=== PATIENT | male | born 1970 | race Caucasian/White ===

== ENCOUNTER 2017-09-13 16:45 | Emergency (ER) | payer OTHER ==
[~2017-09-13] VITALS: Ht 190.5 cm; Wt 103.0 kg
[~2017-09-13 16:45] MED LIST: BUPR300T2 PO; CLON1TAB3 PO; ESCI1TAB10 PO; GABA800T PO; LEVO125T72 PO; TRAZ100T29 PO
--- NOTE | 2017-09-13 16:52 | EMERGENCY ROOM VISIT NOTE ---
History Report prepared by Isabelle: Ashia Landeros Under the Supervision of: Dr. Christ Harrison D.O. First contact with patient: 16:48 Stated Complaint: R HIP DISLOCATE/ NO TRAUMA History of Present Illness The patient is a 46 year old male who presents to the Emergency Room with complaints of a sudden right hip dislocation happening a half hour prior to arrival. He denies any trauma to the area and rates his pain at a 3/10. The patient reports that he drank about a quarter of a fifth today. The patient reports that a month and a half ago his hip dislocated while he was sitting on a bus but he states that it came back in on its own. Source of History: patient Onset: a half hour prior to arrival Position: other (right hip ) Symptom Intensity: rated at a 3/10 Quality: other (dislocation ) Timing: other (sudden ) Review of Systems See HPI for pertinent positives & negatives. A total of 10 systems reviewed and were otherwise negative. Past Medical & Surgical Medical Problems: (1) Avascular necrosis (2) Benign hypertension (3) Dislocation, hip (4) Total replacement of hip Family History Patient reports no known family medical history. Social History Smoking Status: Current Every Day Smoker Alcohol Use: heavy Marital Status: single Housing Status: lives alone Occupation Status: disabled Current/Historical Medications Scheduled Buspirone Hcl (Buspirone Hcl), 30 MG PO Q12 Escitalopram Oxalate (Lexapro), 20 MG PO DAILY Escitalopram Oxalate (Escitalopram Oxalate), 10 MG PO DAILY Gabapentin (Neurontin), 800 MG PO TID Levothyroxine Sodium (Synthroid), 125 MCG PO DAILY Meloxicam (Mobic), 15 MG PO DAILY Prazosin HCl (Prazosin HCl), 1 MG PO HS Trazodone Hcl (Desyrel), 150 MG PO HS Allergies Coded Allergies: No Known Allergies (Verified , 11/09/14) Physical Exam Vital Signs Date Time Temp Pulse Resp B/P (MAP) Pulse Ox O2 Delivery O2 Flow Rate FiO2 09/14/17 12:12 81 18 174/87 95 09/14/17 11:09 85 18 180/90 95 Room Air 09/14/17 09:00 96 20 157/98 96 Room Air 09/14/17 08:48 90 09/14/17 06:01 136/90 94 Room Air 09/14/17 05:46 74 09/14/17 05:30 92 14 09/14/17 05:25 92 14 94 Room Air 09/14/17 05:01 145/92 09/14/17 04:25 96 15 95 Room Air 09/14/17 04:20 91 13 95 Room Air 09/14/17 04:01 149/88 09/14/17 03:20 83 14 94 Room Air 09/14/17 03:02 80 16 146/90 95 Room Air 09/14/17 03:02 146/90 09/14/17 02:20 81 0 95 09/14/17 02:19 75 09/14/17 02:15 76 15 96 Room Air 09/14/17 02:01 123/68 09/14/17 01:15 76 14 09/14/17 01:10 78 13 93 Room Air 09/14/17 01:01 110/65 09/14/17 00:28 110/68 09/14/17 00:10 77 14 92 Room Air 09/14/17 00:05 80 13 94 Room Air 09/13/17 23:32 80 16 129/77 95 Room Air 09/13/17 23:31 129/77 09/13/17 23:05 82 13 93 09/13/17 23:00 79 14 94 09/13/17 22:31 87 09/13/17 22:30 87 14 93 09/13/17 22:00 74 16 97 09/13/17 21:30 74 18 122/69 98 Nasal Cannula 4.0 09/13/17 21:30 81 19 122/69 97 09/13/17 20:03 82 18 133/85 97 Room Air 09/13/17 18:21 98 20 149/96 97 Nasal Cannula 09/13/17 17:57 96 09/13/17 17:44 93 Nasal Cannula 2.0 09/13/17 17:44 92 Nasal Cannula 2.0 09/13/17 16:56 36.9 96 20 143/103 96 Room Air Physical Exam GENERAL: Patient is awake, alert, and in no acute distress. Patient is very anxious appearing. Alcohol noted on breath. EYES: The conjunctivae are clear. The pupils are round and reactive. EARS, NOSE, MOUTH AND THROAT: The nose is without any evidence of any deformity. Mucous membranes are moist tongue is midline NECK: The neck is nontender and supple. RESPIRATORY: Normal respiratory effort is noted there is no evidence of wheezing rhonchi or rales CARDIOVASCULAR: Tachycardic rate and regular rhythm noted there no definite murmurs rubs or gallops normal S1 normal S2 GASTROINTESTINAL: The abdomen is soft. Bowel sounds are present in all quadrants. Abdomen is nontender MUSCULOSKELETAL/EXTREMITIES: Right hip is held in slight flexion and mild internal rotation. Patient resists any range of motion testing with the right hip. SKIN: There is no obvious evidence of any rash. There are no petechiae, pallor or cyanosis noted. NEUROLOGIC: Patient is awake alert and oriented x3 Medical Decision & Procedures ER Provider Diagnostic Interpretation: Radiology results as stated below per my review and radiologist interpretation: R PELVIS/UNILATERAL HIP 1 VIEW CLINICAL HISTORY: 46 years-old Male presenting with right hip pain. TECHNIQUE: Single frontal view of the pelvis and crosstable lateral view of the right hip were obtained. COMPARISON: 11/08/2014. FINDINGS: Posterior dislocation of the right femoral head prosthetic component of the right total hip prosthesis. No gross evidence of a periprosthetic fracture. Postsurgical changes of total left hip arthroplasty also noted. Prominent heterotopic ossification along the inferior aspect of the left hip joint. The bony pelvis is intact. Speckled hyperdensity in the region of the right hip is unchanged since prior exam. IMPRESSION: Posterior dislocation of the right femoral head prosthetic component of the right total hip prosthesis. The report will be called/faxed according to standard departmental protocol. Electronically signed by: Shane Thomson M.D. 09/13/2017 5:41 PM Dictated Date/Time: 09/13/2017 5:39 PM CHEST ONE VIEW PORTABLE CLINICAL HISTORY: 46 years-old Male presenting with CHEST PAIN. TECHNIQUE: Portable semiupright AP view of the chest was obtained. COMPARISON: 01/01/2015. FINDINGS: Cardiomediastinal silhouette normal. Lungs and pleural spaces clear. Postsurgical changes of distal left clavicle resection suspected. Posttraumatic deformity of the mid diaphysis of the right clavicle. Upper abdomen normal. IMPRESSION: 1. No acute cardiopulmonary disease. Electronically signed by: Shane Thomson M.D. 09/13/2017 5:42 PM Dictated Date/Time: 09/13/2017 5:41 PM R HIP UNILATERAL 2 VIEWS CLINICAL HISTORY: 46 years-old Male presenting with post reduction. TECHNIQUE: Frontal and crosstable lateral views of the right hip were obtained. COMPARISON: Pelvic radiograph from earlier the same day. FINDINGS: There has been interval reduction of the right femoral prosthesis dislocation. The right total hip arthroplasty is now appropriately aligned. No residual subluxation. No periprosthetic fracture is evident. Punctate hyperdensities scattered throughout the right hip region are unchanged. Small heterotopic ossification noted along the superior aspect of the hip joint. IMPRESSION: Successful reduction of the right femoral prosthesis component dislocation. No hardware complication. Electronically signed by: Shane Thomson M.D. 09/13/2017 8:48 PM Dictated Date/Time: 09/13/2017 8:47 PM Laboratory Results 09/13/17 17:06 Red Blood Count 4.74, Mean Corpuscular Volume 89.7, Mean Corpuscular Hemoglobin 32.5, Mean Corpuscular Hemoglobin Concent 36.2, Mean Platelet Volume 9.3, Neutrophils (%) (Auto) 54.8, Lymphocytes (%) (Auto) 34.4, Monocytes (%) (Auto) 9.2, Eosinophils (%) (Auto) 1.0, Basophils (%) (Auto) 0.3, Neutrophils # (Auto) 3.94, Lymphocytes # (Auto) 2.47, Monocytes # (Auto) 0.66, Eosinophils # (Auto) 0.07, Basophils # (Auto) 0.02 09/13/17 17:06 Test 09/13/17 17:06 White Blood Count 7.18 K/uL (4.8-10.8) Red Blood Count 4.74 M/uL (4.7-6.1) Hemoglobin 15.4 g/dL (14.0-18.0) Hematocrit 42.5 % (42-52) Mean Corpuscular Volume 89.7 fL (80-100) Mean Corpuscular Hemoglobin 32.5 pg (25-34) Mean Corpuscular Hemoglobin Concent 36.2 g/dl (32-36) Platelet Count 203 K/uL (130-400) Mean Platelet Volume 9.3 fL (7.4-10.4) Neutrophils (%) (Auto) 54.8 % Lymphocytes (%) (Auto) 34.4 % Monocytes (%) (Auto) 9.2 % Eosinophils (%) (Auto) 1.0 % Basophils (%) (Auto) 0.3 % Neutrophils # (Auto) 3.94 K/uL (1.4-6.5) Lymphocytes # (Auto) 2.47 K/uL (1.2-3.4) Monocytes # (Auto) 0.66 K/uL (0.11-0.59) Eosinophils # (Auto) 0.07 K/uL (0-0.5) Basophils # (Auto) 0.02 K/uL (0-0.2) RDW Standard Deviation 45.4 fL (36.4-46.3) RDW Coefficient of Variation 13.7 % (11.5-14.5) Immature Granulocyte % (Auto) 0.3 % Immature Granulocyte # (Auto) 0.02 K/uL (0.00-0.02) Prothrombin Time 10.2 SECONDS (9.0-12.0) Prothromb Time International Ratio 1.0 (0.9-1.1) Activated Partial Thromboplast Time 23.1 SECONDS (21.0-31.0) Partial Thromboplastin Ratio 0.9 Anion Gap 9.0 mmol/L (3-11) Est Creatinine Clear Calc Drug Dose 122.3 ml/min Estimated GFR () 107.9 Estimated GFR (Non- 93.1 BUN/Creatinine Ratio 13.7 (10-20) Calcium Level 9.2 mg/dl (8.5-10.1) Total Bilirubin 0.6 mg/dl (0.2-1) Direct Bilirubin 0.2 mg/dl (0-0.2) Aspartate Amino Transf (AST/SGOT) 29 U/L (15-37) Alanine Aminotransferase (ALT/SGPT) 28 U/L (12-78) Alkaline Phosphatase 55 U/L (45-117) Total Protein 8.3 gm/dl (6.4-8.2) Albumin 4.6 gm/dl (3.4-5.0) Lipase 110 U/L (73-393) Ethyl Alcohol mg/dL 250.9 mg/dl (0-3) Laboratory results per my review. Medications Administered Medications (Trade) Dose Ordered Sig/Nick Route Start Time Stop Time Status Last Admin Dose Admin Sodium Chloride 1,000 ml @ 250 mls/hr Q4H STAT IV 09/13/17 16:53 09/13/17 20:52 DC 09/13/17 17:39 250 MLS/HR Fentanyl Citrate (Fentanyl Inj) 100 mcg Q15M PRN IV 09/13/17 17:00 09/14/17 12:53 DC 09/13/17 19:55 200 MCG Ondansetron HCl (Zofran Inj) 4 mg NOW STAT IV 09/13/17 16:53 09/13/17 16:56 DC 09/13/17 17:39 4 MG Bupivacaine HCl (Sensorcaine 0.75% Inj) 30 ml ONE STAT INFIL 09/13/17 16:53 09/13/17 16:56 DC 09/13/17 17:40 30 ML Fentanyl Citrate (Fentanyl Inj) 50 mcg Q15M PRN IV 09/13/17 18:00 09/14/17 12:53 DC 09/13/17 17:39 50 MCG Midazolam HCl (Versed Inj) 2 mg STK-MED ONCE .ROUTE 09/13/17 19:24 09/13/17 19:25 DC 09/13/17 19:27 1 MG Midazolam HCl (Versed Inj) 10 mg STK-MED ONCE .ROUTE 09/13/17 19:37 09/13/17 19:38 DC 09/13/17 19:55 10 MG Ketorolac Tromethamine (Toradol Inj) 30 mg NOW STAT IV 09/14/17 02:28 09/14/17 02:30 DC 09/14/17 02:59 30 MG Famotidine (Pepcid 20mg Iv Push) 20 mg ONE STAT IV 09/14/17 02:28 09/14/17 02:30 DC 09/14/17 02:59 20 MG Diazepam (Valium Tab) 5 mg NOW STAT PO 09/14/17 03:50 09/14/17 03:51 DC 09/14/17 03:55 5 MG Lorazepam (Ativan Tab) 1 mg NOW STAT SL 09/14/17 10:36 09/14/17 10:38 DC 09/14/17 11:09 1 MG Procedure Location: Right femoral nerve Verbal consent was obtained after the risks and benefits were explained, including but not limited to bleeding, scarring, infection, pain, and bone/joint /nerve damage. At this time, the risks of the procedure are less than the risks of NOT performing the procedure. A time out was taken and the correct patient and site identified. The skin was prepped with betadine and a sterile field set. The right femoral nerve was anesthetized with 20 ml of 0.75% Marcaine with epinephrine. No complications and the patient tolerated the procedure well. Procedure note. Right closed hip reduction. Right posterior hip dislocation-atraumatic The patient was treated with pain medication and Versed. The patient was able to relax somewhat. The right hip was brought into full flexion. Traction was made towards the ceiling. Some external rotation and internal rotation was done. The right hip was felt to reduce back into the acetabular component of the hip replacement. Patient tolerated procedure well. The patient was given medications for pain and for some anxiolysis. Unfortunately because of his n.p.o. status he was unable to receive for procedural sedation. The patient was reevaluated multiple times. Post reduction x-ray revealed good reduction of the right hip prosthesis. ED Course 1648: The patient was evaluated in room A9. A complete history and physical examination were performed. 1653: Ordered Bupivacaine HCl 30 ml INFIL, Zofran Inj 4 mg IV, Sodium Chloride 1 ,000 ml @ 250 mls/hr IV. 1700: Ordered Fentanyl Inj 100 mcg IV. 1800: Ordered Fentanyl Citrate 50 mcg IV. 1807: I put a hip block in the patient. 1848: Ordered Versed Inj 1 mg IV. 1924: Ordered Versed Inj 2 mg IV 1930: I checked on the patient. 193: Ordered Versed Inj 10 mg IV. 2000: I reevaluated the patient. 2100: I checked on the patient and he was asleep. 2317: The patient is still waking up. 0030: The patient was signed out to Dr. Doherty at the change of shift. Medical Decision Differential diagnosis: Etiologies such as fracture, dislocation, neurovascular compromise, compartment syndrome, soft tissue injury, as well as others were entertained. Nursing notes reviewed. Additional history is obtained from the prehospital personnel. The patient is a 46-year-old male who I am familiar with who presents to the emergency department with a dislocation of his right hip. I taken care of this gentleman in the past. 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 The patient also has a serious alcohol problem and presents to the emergency department with alcohol intoxication. He was not a candidate for closed reduction using procedural sedation. He was treated with IV fluids and IV pain medicine. He was reevaluated multiple times. I felt he could be a candidate for reduction using pain medication and Versed. The patient was given both fentanyl and Versed. He was not completely sedated but was able to relax his right leg. He was also treated with a right femoral nerve block. I was able to successfully reduce the patient's right hip but because of his alcohol intoxication and the medications he was given he was not felt to be a good candidate for an ambulatory trial at this time. He was reevaluated multiple times. He was awake alert. He was able to drink but he still had resultant numbness in his right hip. For this reason I discussed his case with the evening physician. He was signed out to the night physician with instructions to follow-up with his orthopedic physician as soon as possible. He was to be reevaluated multiple times until he was able to ambulate and had no further numbness in his right hip and was no longer clinically intoxicated. Please see Dr. Doherty's note for continuation of care and final disposition. Medication Reconcilliation Current Medication List: was personally reviewed by me Blood Pressure Screening Patient's blood pressure: Normal blood pressure Impression Primary Impression: Posterior dislocation of right hip Additional Impression: Alcohol intoxication Scribe Attestation The scribe's documentation has been prepared under my direction and personally reviewed by me in its entirety. I confirm that the note above accurately reflects all work, treatment, procedures, and medical decision making performed by me. Departure Information Dispostion Still a Patient Referrals No Doctor, Assigned (PCP) Lambert QuirogaD.O. Forms HOME CARE DOCUMENTATION FORM, IMPORTANT VISIT INFORMATION, WORK / SCHOOL INSTRUCTIONS Patient Instructions ED Alcohol Intoxication, ED Dislocation Hip Traumatic Redu, My [facility] Additional Instructions Continue all medications as prescribed. Rest and avoid any strenuous activity. Avoid any further alcoholic beverages. Do not operate any heavy machinery including driving a vehicle for the next 24 hours. Continue using Motrin and Tylenol as directed for pain. Problem Qualifiers Primary Impression: Posterior dislocation of right hip Encounter type: initial encounter Qualified Codes: S73.014A - Posterior dislocation of right hip, initial encounter Additional Impression: Alcohol intoxication Complication of substance-induced condition: uncomplicated Qualified Codes: F10.920 - Alcohol use, unspecified with intoxication, uncomplicated
[2017-09-13] MEDS ORDERED: ONDANSETRON INJ 2 MG/ML 2 ML VIAL IV STA (16:53)
[2017-09-13] MEDS ORDERED: BUPIVACAINE HCL 0.75% 10 ML AMP/VIAL INFIL STA (16:53)
[2017-09-13] MEDS ORDERED: SODIUM CHLORIDE 0.9% 1000ML 1,000 ML IV STA (16:53)
[2017-09-13 16:56] VITALS: TEMP 36.9; Ht 190.5 cm; Wt 103.0 kg
[2017-09-13 17:21] LABS: BASO % 0.3 %; BASO ABS # 0.02 K/uL (0-0.2); EOS ABS # 0.07 K/uL (0-0.5); HEMATOCRIT 42.5 % (42-52); HEMOGLOBIN 15.4 g/dL (14.0-18.0); IG# 0.02 K/uL (0.00-0.02); LYMPH % 34.4 %; LYMPH ABS # 2.47 K/uL (1.2-3.4); MEAN CELL VOLUME 89.7 fL (80-100); MEAN CORPUSCULAR HEMOGLOBIN 32.5 pg (25-34); MEAN CORPUSCULAR HGB CONC 36.2 g/dl (32-36); MEAN PLATELET VOLUME 9.3 fL (7.4-10.4); MONO % 9.2 %; MONO ABS # 0.66 K/uL (0.11-0.59); NEUT % 54.8 %; NEUT ABS # 3.94 K/uL (1.4-6.5); PLATELET COUNT 203 K/uL (130-400); RED CELL DISTRIBUTION WIDTH CV 13.7 % (11.5-14.5); RED CELL DISTRIBUTION WIDTH SD 45.4 fL (36.4-46.3); WHITE BLOOD COUNT 7.18 K/uL (4.8-10.8)
[2017-09-13 17:38] LABS: ALBUMIN 4.6 gm/dl (3.4-5.0); CALCIUM 9.2 mg/dl (8.5-10.1); CREATININE 0.96 mg/dl (0.60-1.40); POTASSIUM 3.4 mmol/L (3.5-5.1); PTT PATIENT 23.1 SECONDS (21.0-31.0)
[2017-09-13] MEDS: FENTANYL CITRATE INJ 50 MCG/1 ML 2 ML VIAL IV PRN ×2 (17:39→19:55)
--- NOTE | 2017-09-13 17:42 | DIAGNOSTIC IMAGING REPORT ---
R PELVIS/UNILATERAL HIP 1 VIEW CLINICAL HISTORY: 46 years-old Male presenting with right hip pain. TECHNIQUE: Single frontal view of the pelvis and crosstable lateral view of the right hip were obtained. COMPARISON: 11/08/2014. FINDINGS: Posterior dislocation of the right femoral head prosthetic component of the right total hip prosthesis. No gross evidence of a periprosthetic fracture. Postsurgical changes of total left hip arthroplasty also noted. Prominent heterotopic ossification along the inferior aspect of the left hip joint. The bony pelvis is intact. Speckled hyperdensity in the region of the right hip is unchanged since prior exam. IMPRESSION: Posterior dislocation of the right femoral head prosthetic component of the right total hip prosthesis. The report will be called/faxed according to standard departmental protocol. Electronically signed by: Shane Thomson M.D. 09/13/2017 5:41 PM Dictated Date/Time: 09/13/2017 5:39 PM
[2017-09-13 17:43] LABS: TOTAL PROTEIN 8.3 gm/dl (6.4-8.2)
--- NOTE | 2017-09-13 17:43 | DIAGNOSTIC IMAGING REPORT ---
CHEST ONE VIEW PORTABLE CLINICAL HISTORY: 46 years-old Male presenting with CHEST PAIN. TECHNIQUE: Portable semiupright AP view of the chest was obtained. COMPARISON: 01/01/2015. FINDINGS: Cardiomediastinal silhouette normal. Lungs and pleural spaces clear. Postsurgical changes of distal left clavicle resection suspected. Posttraumatic deformity of the mid diaphysis of the right clavicle. Upper abdomen normal. IMPRESSION: 1. No acute cardiopulmonary disease. Electronically signed by: Shane Thomson M.D. 09/13/2017 5:42 PM Dictated Date/Time: 09/13/2017 5:41 PM
[2017-09-13 17:44] VITALS: O2SAT 93
[2017-09-13] MEDS ORDERED: FENTANYL CITRATE INJ 50 MCG/1 ML 2 ML VIAL IV PRN (18:00)
[2017-09-13] MEDS ORDERED: MIDAZOLAM HCL 5 MG/ML 1 ML VIAL IV STA (18:48)
[2017-09-13] MEDS ORDERED: MIDAZOLAM HCL 5 MG/ML 2ML VIAL ONE ×2 (19:21→19:37)
[2017-09-13] MEDS ORDERED: MIDAZOLAM HCL 1 MG/ML 2ML VIAL ONE (19:24)
--- NOTE | 2017-09-13 20:50 | DIAGNOSTIC IMAGING REPORT ---
R HIP UNILATERAL 2 VIEWS CLINICAL HISTORY: 46 years-old Male presenting with post reduction. TECHNIQUE: Frontal and crosstable lateral views of the right hip were obtained. COMPARISON: Pelvic radiograph from earlier the same day. FINDINGS: There has been interval reduction of the right femoral prosthesis dislocation. The right total hip arthroplasty is now appropriately aligned. No residual subluxation. No periprosthetic fracture is evident. Punctate hyperdensities scattered throughout the right hip region are unchanged. Small heterotopic ossification noted along the superior aspect of the hip joint. IMPRESSION: Successful reduction of the right femoral prosthesis component dislocation. No hardware complication. Electronically signed by: Shane Thomson M.D. 09/13/2017 8:48 PM Dictated Date/Time: 09/13/2017 8:47 PM
[2017-09-13] MEDS ORDERED: PRZ1 PO (22:43)
[2017-09-13] MEDS ORDERED: LXP10 PO (22:43)
[2017-09-13] MEDS ORDERED: TRAZ1TAB52 PO (22:43)
[2017-09-13] MEDS ORDERED: BUSP30TA2 PO (22:43)
[2017-09-13] MEDS ORDERED: MELO-84 PO (22:43)
--- NOTE | 2017-09-14 00:49 | EMERGENCY ROOM VISIT NOTE ---
ED Visit Note First contact with patient: 00:48 Bedside signout performed by Dr. Harrison and myself. Patient reexamined. Increased mobility and decreased pain at the right lower extremity status post hip reduction. Patient awake and alert, vital signs stable. Patient starting to tolerate sips of p.o. at bedside. Plan is for discharge when patient is more steady on his feet as he felt some slight numbness and weakness status post reduction likely secondary to the nerve block provided by Dr. Harrison. 0215: Pt attempted to walk again and c/o increased pain. 0400: CT of the right hip without contrast performed due to persistent pain postreduction. CT right hip: X-rays today and from 11/08/14. Small part of the distal component at the mid femoral level not included. Right hip prosthesis appears intact. No dislocation. No obvious acute fracture. No evidence of loosening. Mild heterotopic ossification around the right hip joint. Small punctate calcifications are metallic densities around the distal femoral component as well as some of the soft tissues around the hip joint. Stable since both prior studies. Small oblique lucency of the lateral femoral cortex with some adjacent metallic densities appears stable since both prior x-rays. Mild fat stranding along the lateral hip subcutaneous tissues. May represent mild contusion. Radiologist: Adri Aguiar MD 0412: Reexamination of the patient. Patient states he is unable to bear weight on the right lower extremity. States this is different compared to prior episodes of hip dislocation status post reduction. Patient able to feel painful as well as light touch on sensory exam. States has increased pain with movement of the right lower extremity or weightbearing. Of note, pt reports to nursing staff complete numbness in certain areas, however on my bedside exam he reports being improved and has intact sensation. 0440: Pt seen by correctional casework specialist. Will attempt to place pt in rehab for additional PT and ortho eval as a precaution. 0545: construction project mgr still awaiting call back from [facility]. 0611: [facility] called back and will start the admission process. They requested ortho consult to additional recommendations. 0626: Dr. Quiroga, ortho paged. 0632: Discussed with Dr. Quiroga. They can see in follow up. Total hip precautions should be placed. 0740: Pt working on his computer. No obvious distress or pain. No evidence of alcohol withdrawal/DT's. VS stable.
[2017-09-14] MEDS ORDERED: FAMOTIDINE 20MG/5ML IV PUSH IV STA (02:28)
[2017-09-14] MEDS ORDERED: KETOROLAC TROMETHAMINE 30 MG/ML VIAL IV STA (02:28)
[2017-09-14] MEDS ORDERED: DIAZEPAM 5MG TAB PO STA (03:50)
--- NOTE | 2017-09-14 07:15 | DIAGNOSTIC IMAGING REPORT ---
RIGHT HIP CT CT DOSE: 936.19 mGy.cm HISTORY: Right hip pain. Dislocation. incr pain s/p reduction TECHNIQUE: Multiaxial CT images of the right hip were performed and reformatted in the sagittal and coronal plane without the use of contrast. A dose lowering technique was utilized adhering to the principles of ALARA. COMPARISON: Right hip 09/13/2017. FINDINGS: There is a right total hip arthroplasty. The hardware appears intact. No acute fracture or dislocation. Mild heterotopic ossification surrounding the right hip joint. There are also a few scattered punctate metallic densities surrounding the femoral component and within the soft tissues of the hip. Mild subcutaneous fat stranding within the lateral aspect of the hip. IMPRESSION: Right total hip arthroplasty. No acute fracture or dislocation. Electronically signed by: Sean Alcantar M.D. 09/14/2017 7:14 AM Dictated Date/Time: 09/14/2017 7:09 AM
[2017-09-14] MEDS ORDERED: DIAZEPAM 5MG TAB PO PRN (09:15)
--- NOTE | 2017-09-14 10:23 | EMERGENCY ROOM VISIT NOTE ---
ED Visit Note The patient was taken in signout from Dr. Doherty at the change of shift. Please see that note for details. The patient was pending placement at [facility]. The patient was evaluated. He was somewhat anxious and was given a dose of Ativan orally. The patient was accepted to [facility] and transferred.
[2017-09-14] MEDS ORDERED: LORAZEPAM 1 MG TAB SL STA (10:36)
[2017-09-14 12:12] VITALS: BP 174/87; PULSE 81; O2SAT 95
== END 2017-09-14 12:13 ==
LOC: EDBD 16:45 → C.EDA 16:48
DX: T84.020A Dislocation of internal right hip prosthesis, initial encounter (principal); X58.XXXA Exposure to other specified factors, initial encounter; Y83.1 Surgical operation with implant of artificial internal device as the cause of abnormal reaction of the patient, or of later complication, without mention of misadventure at the time of the procedure; F10.920 Alcohol use, unspecified with intoxication, uncomplicated; Y90.8 Blood alcohol level of 240 mg/100 ml or more; I10 Essential (primary) hypertension; F17.210 Nicotine dependence, cigarettes, uncomplicated; Z79.899 Other long term (current) drug therapy; Z96.641 Presence of right artificial hip joint

== ENCOUNTER 2018-01-14 13:46 | Emergency (ER) | payer OTHER ==
[~2018-01-14] VITALS: Ht 189.9 cm; Wt 103.1 kg
[~2018-01-14 13:46] MED LIST changes: -BUPR300T2 PO; +BUSP30TA2 PO; -CLON1TAB3 PO; +LXP10 PO; +MELO-84 PO; +PRZ1 PO; -TRAZ100T29 PO; +TRAZ1TAB52 PO
[2018-01-14 13:58] VITALS: TEMP 36.4; Ht 189.9 cm; Wt 103.1 kg
--- NOTE | 2018-01-14 14:34 | EMERGENCY ROOM VISIT NOTE ---
History First contact with patient: 14:10 Chief Complaint: HIP PAIN Stated Complaint: RT HIP PAIN History of Present Illness The patient is a 47 year old male who presents to the Emergency Room with complaints of right hip/buttock pain. The patient states that he has a history of a right hip replacement and that his hip "dislocates all the time." He states that he dislocated the hip 5 days ago and had it reduced at a hospital in [place]. He states that at 3 AM that night, he developed pain in the side of the hip. He states that he was told he had bursitis and was referred to an orthopedic clinic. He did follow-up with them in the office. He reports he has been having pain in the bottom of the right buttock. He believes he may have pulled a muscle. He states [place]. He no longer follows up with an orthopedist regularly. He denies numbness or weakness. He has been able to walk. He was given a prescription for tramadol and has been taking this for pain. He rates his discomfort an 8/10. He denies any complaints other than his right buttock pain. Review of Systems A complete 6 point review of systems was reviewed with the patient with pertinent positives and negatives as per history of present illness. All else were negative. Past Medical/Surgical History Medical Problems: (1) Avascular necrosis (2) Benign hypertension (3) Dislocation, hip (4) Total replacement of hip Family History Patient reports no known family medical history. Social History Smoking Status: Never Smoker Alcohol Use: heavy Marital Status: single Housing Status: lives alone Occupation Status: disabled Current/Historical Medications Scheduled Buspirone Hcl (Buspirone Hcl), 30 MG PO Q12 Escitalopram Oxalate (Lexapro), 20 MG PO DAILY Escitalopram Oxalate (Escitalopram Oxalate), 10 MG PO DAILY Gabapentin (Neurontin), 800 MG PO TID Levothyroxine Sodium (Synthroid), 125 MCG PO DAILY Meloxicam (Mobic), 15 MG PO DAILY Prazosin HCl (Prazosin HCl), 1 MG PO HS Trazodone Hcl (Desyrel), 150 MG PO HS Physical Exam Vital Signs Date Time Temp Pulse Resp B/P (MAP) Pulse Ox O2 Delivery O2 Flow Rate FiO2 01/14/18 15:07 108 18 148/109 96 01/14/18 13:58 36.4 118 18 153/115 96 Room Air Physical Exam VITALS: Vitals are noted on the nurse's note and reviewed by myself. Vital signs stable. GENERAL: This is a 47-year-old male, in no acute distress, lying in bed, unkempt appearing. SKIN: No erythema or warmth. MUSCULOSKELETAL: No obvious deformities. No tenderness of the lateral aspect of the right hip. There is tenderness to the right buttock at the area of the hamstring insertion. Strength 5/5 in the right hip. Dorsalis pedis pulse 2+. Capillary refill within 2 seconds. NEURO: Patient was alert and oriented to person place and time. Medical Decision & Procedures Medical Decision Differential diagnosis includes musculoskeletal pain, fracture, dislocation, sprain, among others. The patient was evaluated as above. He was recently seen at another emergency department for a hip dislocation. He did bring these notes with him. He now has pain in the right buttock which is most consistent with a muscular strain. Patient has full range of motion and strength in the hip. I do not see any indication for further imaging. I did have a discussion with the patient regarding orthopedic follow-up. He has seen multiple orthopedist in the past few years, but has not seen his surgeon and has seen no one consistently. I did recommend that he begin seeing someone consistently, preferably where he lives full-time. He was advised to use naproxen for his pain. He was given crutches to help with ambulation. He verbalized understanding of my assessment and treatment plan and was discharged home in good condition. Medication Reconcilliation Current Medication List: was personally reviewed by me Blood Pressure Screening Patient's blood pressure: Elevated blood pressure Blood pressure disposition: Referred to PCP Impression Primary Impression: Muscle strain of right gluteal region Departure Information Dispostion Home / Self-Care Condition GOOD Referrals No Doctor, Assigned (PCP) Patient Instructions My [facility] [employer] Additional Instructions Use the crutches to aid with walking. Contact your orthopedist to schedule follow-up. Naproxen, 1 tablet twice a day until follow-up with orthopedics. For pain control, you can use the following [id number] medicines (if >12 yo): - Regular strength (325mg/tab) Tylenol (acetaminophen) 2 tabs every 4-6 hours as needed. Do not exceed 12 tablets in a 24 hour period. Avoid taking more than 4 grams (4000 mg) of Tylenol per day. This includes any other sources of acetaminophen you may take on a regular basis. You may apply ice or heat to the area to help relieve pain. Return to the ER with any worsening or new/concerning symptoms Problem Qualifiers Primary Impression: Muscle strain of right gluteal region Encounter type: initial encounter Qualified Codes: S76.011A - Strain of muscle, fascia and tendon of right hip, initial encounter
[2018-01-14 15:07] VITALS: BP 148/109; PULSE 108; O2SAT 96
== END 2018-01-14 15:11 | disposition home or self-care (01) ==
LOC: C.EDB 13:55 → C.EDD 15:11
DX: S76.011A Strain of muscle, fascia and tendon of right hip, initial encounter (principal); X58.XXXA Exposure to other specified factors, initial encounter; M70.71 Other bursitis of hip, right hip; I10 Essential (primary) hypertension; Z96.642 Presence of left artificial hip joint; Z98.890 Other specified postprocedural states; Z79.899 Other long term (current) drug therapy